=== PATIENT | male | born 1945 | race Caucasian/White ===

== ENCOUNTER 2024-05-26 12:22 | Emergency (ER) | payer OTHER, MEDICARE ==
[~2024-05-26] VITALS: Ht 175.3 cm; Wt 92.1 kg
[2024-05-26 12:53] VITALS: BP 155/77; PULSE 61; RESP 18; O2SAT 97
[2024-05-26] MEDS: LIDOcaine 1% W/epiNEPHrine 1:100,000 20ml vial IJ ONE (13:31)
[2024-05-26] MEDS ORDERED: CLIN-97 PO (14:28)
[2024-05-26] MEDS: clindamycin 150mg capsule PO ONE (14:32)
[2024-05-26 15:06] VITALS: TEMP 97.1
== END 2024-05-26 15:17 | disposition home or self-care (01) ==
LOC: ER 12:24
DX: S01.511A Laceration without foreign body of lip, initial encounter (principal); S49.91XA Unspecified injury of right shoulder and upper arm, initial encounter; M25.511 Pain in right shoulder; Z79.2 Long term (current) use of antibiotics; W01.0XXA Fall on same level from slipping, tripping and stumbling without subsequent striking against object, initial encounter; Y93.89 Activity, other specified; Y92.89 Other specified places as the place of occurrence of the external cause; Y99.8 Other external cause status
CPT/HCPCS: 12011; 73030; 99284; A4565; A6449